=== PATIENT | male | born 1960 | race Two or more races ===

== ENCOUNTER 2022-05-25 09:02 | Emergency (ER) | payer OTHER ==
[~2022-05-25] VITALS: Ht 182.9 cm; Wt 106.6 kg
[2022-05-25] MEDS ORDERED: GLIMEPIRIDE1 M1 (09:20)
[2022-05-25] MEDS ORDERED: METFORMIN HCL500 M2 (09:20)
[2022-05-25] MEDS ORDERED: ELIQUIS5 MG (09:20)
[2022-05-25] MEDS ORDERED: TOPROL XL25 M1 (09:21)
[2022-05-25] MEDS ORDERED: NEURONTIN300 MG (09:22)
[2022-05-25] MEDS ORDERED: QUINAPRIL HCL5 MG (09:22)
[2022-05-25] MEDS ORDERED: ADULT LOW DOSE81 M1 (09:22)
[2022-05-25] MEDS ORDERED: ATORVASTATIN CA40 MG (09:23)
[2022-05-25] MEDS ORDERED: RANEXA500 MG (09:23)
[2022-05-25] MEDS ORDERED: PROTONIX40 MG PO (09:24)
== END 2022-05-25 14:41 | disposition home or self-care (01) ==
LOC: ER 09:02
DX: R07.89 Other chest pain (principal); R61 Generalized hyperhidrosis; Z88.0 Allergy status to penicillin; I10 Essential (primary) hypertension; E11.9 Type 2 diabetes mellitus without complications; Z79.84 Long term (current) use of oral hypoglycemic drugs; I25.10 Atherosclerotic heart disease of native coronary artery without angina pectoris